=== PATIENT | female | born 1985 ===

== ENCOUNTER 2017-12-06 22:40 | Emergency (ER) | payer SELFPAY ==
[2017-12-06 22:40] VITALS: BMI 31.4
[2017-12-06 22:45] VITALS: BP 106/66; PULSE 63; RESP 16; TEMP 97.4; O2SAT 100
--- NOTE | 2017-12-06 22:56 | ED PDOC ---
HPI: Back Time Seen by Provider: 12/06/17 22:50 Chief Complaint (Nursing): Back Pain History Per: Patient History/Exam Limitations: no limitations Additional Complaint(s): 32-year-old female with no significant past history, reports 2 day history of back pain worse with movement, reports applying heat packs with no relief. Otherwise: (-) trauma, (-) injury, (-) chest pain, (-) SOB, (-) urinary symptoms, (-) paresthesias, (-) weakness, (-) acute bowel or bladder dysfunction , (-) fever. Has no history of prior back problem. Past Medical History Vital Signs: Last Vital Signs Temp 97.4 F L 12/06/17 22:43 Pulse 63 12/06/17 22:43 Resp 16 12/06/17 22:43 BP 106/66 12/06/17 22:43 Pulse Ox 100 12/06/17 22:43 - Family History Family History: States: Unknown Family Hx - Home Medications Home Medications: Ambulatory Orders Medication Instructions Recorded Nitrofurantoin Macrocrystals 100 mg PO BID #13 cap 08/26/15 [Macrobid] Cyclobenzaprine [Cyclobenzaprine 10 mg PO TID PRN #15 tab 12/06/17 HCl] Meloxicam [Mobic] 15 mg PO DAILY #20 tab 12/06/17 - Allergies Allergies/Adverse Reactions: Allergies Allergy/AdvReac Type Severity Reaction Status Date / Time No Known Allergies Allergy Unverified 12/06/17 22:43 Review of Systems Constitutional: Negative for: Fever, Weakness, Malaise Cardiovascular: Negative for: Chest Pain, Palpitations, Edema Respiratory: Negative for: Cough, Shortness of Breath Gastrointestinal: Negative for: Vomiting, Abdominal Pain, Diarrhea Genitourinary Female: Negative for: Dysuria, Incontinence, Hematuria Musculoskeletal: Positive for: Back Pain. Negative for: Neck Pain, Shoulder Pain, Hand Pain Physical Exam - Physical Exam Comments: GENERAL APPEARANCE: Patient is awake, alert, oriented x 3, in no acute distress. SKIN: Warm, dry; (-) cyanosis. EYES: (-) conjunctival pallor. ENMT: Mucous membranes moist. NECK: (-) tenderness, (-) stiffness, (-) lymphadenopathy. CHEST AND RESPIRATORY: (-) rales, (-) rhonchi, (-) wheezes; breath sounds equal bilaterally. HEART AND CARDIOVASCULAR: (-) irregularity; (-) murmur, (-) gallop. ABDOMEN AND GI: Soft; (-) tenderness; (-) palpable mass. BACK: (-) Paravertebral tenderness, (-) spasm, (-) direct bony tenderness, (-) deformity. EXTREMITIES: (-) deformity. Distal pulses good bilaterally. NEURO AND PSYCH: Mental status as above. Intact sensation bilaterally; normal strength in extension of the knees, plantar and dorsiflexion of the toes. - ECG O2 Sat by Pulse Oximetry: 100 Medical Decision Making Medical Decision Making: Impression : back pain Patient medicated with Toradol IM and Flexeril by mouth. Diagnosis of musculoskeletal back pain discussed with the patient. Based on history and exam, plan will be for outpatient follow-up. Advised to follow up with primary care physician or the clinic in 1-2 days without fail. Advised to take medication as prescribed. Return to the emergency room at any time for any new or worsening symptoms. Patient states she fully agrees with and understands discharge instructions. States that she agrees with the plan and disposition. Verbalized and repeated discharge instructions and plan. I have given the patient opportunity to ask any additional questions. Disposition - Clinical Impression Clinical Impression: Back pain - Patient ED Disposition Is Patient to be Admitted: No Counseled Patient/Family Regarding: Diagnosis, Need For Followup, Rx Given - Disposition Referrals: [facility] [Outside] Disposition: Routine/Home Disposition Time: 23:00 Condition: STABLE Additional Instructions: Thank you for letting us take care of you today. You were treated for back pain. The emergency medical care you received today was directed at your acute symptoms. If you were prescribed any medication, please fill it and take as directed. It may take several days for your symptoms to resolve. Return to the Emergency Department if your symptoms worsen, do not improve, or if you have any other problems. Please contact your doctor in 2 days for re-evaluation and follow up / or call one of the physicians/clinics you have been referred to that are listed on the Patient Visit Information form that is included in your discharge packet. Bring any paperwork you were given at discharge with you along with any medications you are taking to your follow up visit. Our treatment cannot replace ongoing medical care by a primary care provider (PCP) outside of the emergency department. Thank you for allowing the [facility] team to be part of your care today. Prescriptions: Cyclobenzaprine [Cyclobenzaprine HCl] 10 mg PO TID PRN #15 tab PRN Reason: Muscle Spasm Meloxicam [Mobic] 15 mg PO DAILY #20 tab Instructions: Upper Back Pain Forms: [employer] (Guatemalan), [facility] ED School/Work Excuse Print Language: LATVIAN
== END 2017-12-06 23:28 | disposition home or self-care (01) ==
LOC: H.ER 22:40
DX: M54.9 Dorsalgia, unspecified (principal)
CPT/HCPCS: 96372; 99282; J1885

== ENCOUNTER 2018-01-20 08:51 | Emergency (ER) | payer SELFPAY ==
[2018-01-20 08:51] VITALS: BMI 31.4
[2018-01-20 09:22] VITALS: O2SAT 98
--- NOTE | 2018-01-20 10:24 | RAD ---
PROCEDURE: Radiographs of the Left Shoulder HISTORY: L shoulder pain COMPARISON: No prior. FINDINGS: BONES: Normal. No fracture. JOINTS: Normal. Glenohumeral and acromioclavicular joints preserved. No osteoarthritis. SOFT TISSUES: Normal. OTHER FINDINGS: None. IMPRESSION: No evidence of acute displaced fracture nor dislocation.
--- NOTE | 2018-01-20 10:38 | ED PDOC ---
Upper Extremity Pain/Injury Time Seen by Provider: 01/20/18 09:22 Chief Complaint (Nursing): Upper Extremity Problem/Injury Chief Complaint (Provider): Left shoulder pain History Per: Patient History/Exam Limitations: no limitations Onset/Duration Of Symptoms: Intermittent Episodes, Persistent ("months") Current Symptoms Are (Timing): Still Present Quality: "Pain" Exacerbating Factor(s): Strenuous Use Of Affected Area Additional History Per: Patient Additional Complaint(s): 32yo female, with no past medical history, presents to ED for evaluation of intermittent pain to her left shoulder, for "months." Patient states the pain is worse with movement and she has been taking Tylenol with minimal relief of pain. She denies any trauma or injury to her arm. Patient states she is right hand dominant and works as a front window cashier. She also states she was evaluated in this ER 2x before with similar complaints. She denies any numbness, tingling, weakness to her arm and states the pain is non-radiating. She has no other medical complaints. Past Medical History Reviewed: Historical Data, Nursing Documentation, Vital Signs Vital Signs: Last Vital Signs Temp Pulse Resp BP Pulse Ox 98 01/20/18 09:20 - Medical History PMH: No Chronic Diseases - Surgical History Surgical History: No Surg Hx - Family History Family History: States: No Known Family Hx, Unknown Family Hx - Home Medications Home Medications: Ambulatory Orders Medication Instructions Recorded Nitrofurantoin Macrocrystals 100 mg PO BID #13 cap 08/26/15 [Macrobid] Cyclobenzaprine [Cyclobenzaprine 10 mg PO TID PRN #15 tab 12/06/17 HCl] Meloxicam [Mobic] 15 mg PO DAILY #20 tab 12/06/17 - Allergies Allergies/Adverse Reactions: Allergies Allergy/AdvReac Type Severity Reaction Status Date / Time No Known Allergies Allergy Unverified 12/06/17 22:43 Review of Systems ROS Statement: Except As Marked, All Systems Reviewed And Found Negative Musculoskeletal: Positive for: Shoulder Pain (left shoulder pain) Neurological: Negative for: Weakness, Numbness, Other (tingling) Physical Exam - Reviewed Nursing Documentation Reviewed: Yes Vital Signs Reviewed: Yes - Physical Exam Appears: Positive for: Non-toxic, No Acute Distress Skin: Positive for: Normal Color Eye Exam: Positive for: Normal appearance Neck: Positive for: Supple Cardiovascular/Chest: Positive for: Regular Rate, Rhythm Respiratory: Positive for: Normal Breath Sounds Pulses-Radial (L): 2+ Pulses-Radial (R): 2+ Extremity: Positive for: Normal ROM (FROM of left shoulder, elbow, wrist and hand.), Tenderness (tenderness to left shoulder and medially. no erythema or edema noted.), Other (distal sensations intact). Negative for: Deformity Neurologic/Psych: Positive for: Alert, Oriented. Negative for: Motor/Sensory Deficits - Laboratory Results Urine POC: Negative - ECG O2 Sat by Pulse Oximetry: 98 (RA) Pulse Ox Interpretation: Normal Medical Decision Making Medical Decision Making: Impression: Left shoulder pain, likely musculoskeletal Plan: -- XR Left shoulder -- Toradol 30mg IM -- UPreg Scribe Attestation: Documented by, Keely Mc acting as a scribe for Jazmin Singh MD. Provider Scribe Attestation: All medical record entries made by the Scribe were at my direction and personally dictated by me. I have reviewed the chart and agree that the record accurately reflects my personal performance of the history, physical exam, medical decision making, and the department course for this patient. I have also personally directed, reviewed, and agree with the discharge instructions and disposition. Disposition - Disposition Forms: [facility] ([place] Sor[place])
[2018-01-20 13:15] VITALS: PULSE 74; TEMP 98
== END 2018-01-20 12:20 | disposition home or self-care (01) ==
LOC: H.ER 08:51
DX: M25.512 Pain in left shoulder (principal)
CPT/HCPCS: 73030; 81025; 96372; 99283; J1885